=== PATIENT | female | born 1970 | race African-American/Black ===

== ENCOUNTER 2023-04-09 21:30 | Emergency (ER) | payer OTHER ==
[2023-04-09 21:36] VITALS: BMI 36.2
[2023-04-09 22:48] LABS: BASO % 0.5 % (0-2.0); HEMATOCRIT 42.1 % (32.4-45.2); HEMOGLOBIN 13.3 GM/dL (10.7-15.3); LYMPH % 40.2 % (8-40); MCH 24.8 pg (25.7-33.7); MCHC 31.6 g/dl (32.0-36.0); MEAN CELL VOLUME 78.6 fl (80-96); MEAN PLT VOLUME 8.5 fl (7.5-11.1); MONO % 6.4 % (3.8-10.2); NEUT % 48.9 % (42.8-82.8); PLATELET COUNT 270 10^3/uL (134-434); RBC 5.36 M/mm3 (3.60-5.2); WHITE BLOOD COUNT 7.9 K/mm3 (4.0-10.0)
[2023-04-09 23:07] LABS: POTASSIUM 3.8 mmol/L (3.5-5.1)
[2023-04-09 23:09] LABS: ALBUMIN 3.8 g/dl (3.4-5.0); BLOOD UREA NITROGEN 17.6 mg/dL (7-18)
[2023-04-09 23:12] LABS: CREATININE 1.1 mg/dL (0.55-1.3)
[2023-04-09 23:14] LABS: BILIRUBIN,TOTAL 0.3 mg/dL (0.2-1); TOT PROT 8.2 g/dl (6.4-8.2)
[2023-04-10 02:18] VITALS: BP 115/84; PULSE 76; RESP 18; TEMP 98.2
== END 2023-04-10 02:23 | disposition home or self-care (01) ==
LOC: JER 21:30
DX: R13.10 Dysphagia, unspecified (principal); R07.0 Pain in throat; R06.00 Dyspnea, unspecified; M54.2 Cervicalgia; T78.40XA Allergy, unspecified, initial encounter
CPT/HCPCS: 36415; 70491-TC; 80053; 84436; 84443; 84479; 84703; 85025; 99285-25; Q9967

== ENCOUNTER 2023-05-02 14:08 | Emergency (ER) | payer OTHER ==
[2023-05-02 14:16] VITALS: BP 131/74; PULSE 77; RESP 16; TEMP 98.4; BMI 36.2
[2023-05-02] MEDS ORDERED: IBUPROFEN 400 MG TABLET (FP) PO ONE (16:08)
[2023-05-02] MEDS: IBUPROFEN 400 MG TABLET (FP) PO ONE (16:10)
== END 2023-05-02 16:23 | disposition home or self-care (01) ==
LOC: JERFT 14:08
DX: M25.561 Pain in right knee (principal); M22.2X1 Patellofemoral disorders, right knee
CPT/HCPCS: 73562-TC-LT-FY; 73562-TC-RT-FY; 99284-25